=== PATIENT | male | born 1975 | race African-American/Black ===

== ENCOUNTER 2025-02-12 22:53 | Emergency (ER) | payer OTHER ==
[2025-02-12] MEDS ORDERED: Acetaminophen 325 MG TAB ONE (23:17)
== END 2025-02-13 00:08 ==
LOC: NAV ERS 22:53
DX: S50.02XA Contusion of left elbow, initial encounter (principal); W01.0XXA Fall on same level from slipping, tripping and stumbling without subsequent striking against object, initial encounter; Y92.149 Unspecified place in prison as the place of occurrence of the external cause
CPT/HCPCS: 29105